=== PATIENT | male | born 1955 | race Two or more races ===

== ENCOUNTER → 2016-08-30 | Outpatient (CLI) | payer OTHER | LOC: BRMIMAGING 10:58 | PROVIDERS: ATTEND Specialist | DX: R07.89 Other chest pain (principal) | CPT/HCPCS: 71020-PO ==

== ENCOUNTER → 2016-10-04 | Outpatient (CLI) | payer OTHER | LOC: BRMIMAGING 16:28 | PROVIDERS: ATTEND Internal Medicine | DX: M54.6 Pain in thoracic spine (principal) | CPT/HCPCS: 72072-PO ==